=== PATIENT | male | born 1950 | race Caucasian/White ===

== ENCOUNTER 2021-02-03 09:00 | Emergency (ER) | payer MEDICARE ==
[~2021-02-03] VITALS: Ht 182.9 cm; Wt 86.2 kg
[2021-02-03] MEDS ORDERED: SODIUM CHLORIDE 0.9% 1000ML 1,000 ML IV STA (09:17)
[2021-02-03 09:21] LABS: BASOPHILS % 0.5 % (0.0-1.0); EOSINOPHILS # (AUTO) 0.2 (0.0-0.4); EOSINOPHILS % 3.5 % (0.0-6.0); HEMOGLOBIN 14.8 g/dL (14.0-18.0); LYMPHOCYTES # (AUTO) 1.8 (1.0-3.2); LYMPHOCYTES % 28.9 % (18.0-39.1); MEAN CORPUSCULAR HGB CONC 31.5 g/dL (31-35); MEAN CORPUSCULAR VOLUME 85.6 fL (81-99); MONOCYTES # (AUTO) 0.7 (0.2-0.8); MONOCYTES % 10.9 % (4.4-11.3); NEUTROPHILS # (AUTO) 3.4 (2.1-6.9); NEUTROPHILS % 55.7 % (38.7-80.0); PLATELET COUNT 279 x10e3/uL (140-360); RED BLOOD COUNT 5.49 x10e6/uL (4.3-5.7); RED CELL DISTRIBUTION WIDTH 17.1 % (11.7-14.4)
[2021-02-03 09:40] LABS: ALANINE AMINOTRANSFERASE 18 IU/L (0-55); ALBUMIN 3.2 g/dL (3.5-5.0); ALBUMIN/GLOBULIN RATIO 0.7 (0.8-2.0); ALKALINE PHOSPHATASE 131 IU/L (40-150); ANION GAP 14.6 mmol/L (8-16); BLOOD UREA NITROGEN 7 mg/dL (7-26); BUN/CREATININE RATIO 8 (6-25); CALCIUM 8.4 mg/dL (8.4-10.2); CARBON DIOXIDE 26 mmol/L (22-29); CHLORIDE 105 mmol/L (98-107); CREATINE KINASE 103 IU/L (30-200); EST GLOMERULAR FILTRATION RATE 84 ML/MIN (60-); GLUCOSE 103 mg/dL (74-118); POTASSIUM 4.6 mmol/L (3.5-5.1); SODIUM 141 mmol/L (136-145)
[2021-02-03 09:53] LABS: COLOR,URINE YELLOW (YELLOW)
[2021-02-03 09:54] LABS: CLARITY,URINE CLEAR (CLEAR); KETONES,URINE NEGATIVE (NEGATIVE); LEUKOCYTE ESTERASE ,URINE NEGATIVE (NEGATIVE); NITRITE,URINE NEGATIVE (NEGATIVE); PROTEIN,URINE DIPSTICK NEGATIVE (NEGATIVE)
[2021-02-03 09:57] LABS: AMPHETAMINES SCREEN,URINE NEGATIVE (NEGATIVE); BENZODIAZEPINES SCREEN,URINE NEGATIVE (NEGATIVE); PHENCYCLIDINE SCREEN,URINE NEGATIVE (NEGATIVE)
[2021-02-03 09:58] LABS: URINE UROBILINOGEN 0.2 mg/dL (0.2 - 1)
[2021-02-03 10:02] LABS: SALICYLATE < 5.0 mg/dL (0-30)
[2021-02-03 10:06] LABS: BACTERIA,URINE MODERATE /HPF; EPITHELIAL CELLS,URINE FEW /LPF; WBC,URINE (MAN) >50 /HPF (0-5)
[2021-02-03 10:07] LABS: MUCUS,URINE MANY (RARE); RENAL EPITHELIAL CELLS,URINE FEW; TRANSITIONAL EPI CELLS,URINE FEW
[2021-02-03] MEDS ORDERED: SIMVASTATIN40 MG PO (20:28)
[2021-02-03] MEDS ORDERED: VERAPAMIL ER120 MG PO (20:36)
[2021-02-03] MEDS ORDERED: NAPROXEN250 MG PO (20:36)
[2021-02-03] MEDS ORDERED: FAMOTIDINE20 MG PO (20:36)
[2021-02-03] MEDS ORDERED: REFRESH PLUS1 EACH (20:36)
[2021-02-03] MEDS ORDERED: DOCUSATE SODIU100 MG PO (20:36)
[2021-02-03] MEDS ORDERED: LEVOBUNOLOL HCL5 ML OP (20:36)
[2021-02-03] MEDS ORDERED: LISINOPRIL10 MG PO (20:36)
[2021-02-03] MEDS ORDERED: HYDROCHLOROTH12.5 MG PO (20:36)
[2021-02-03] MEDS ORDERED: VITAMIN D350 MCG (20:36)
[2021-02-03] MEDS ORDERED: TERAZOSIN HCL2 MG PO (20:36)
[2021-02-03] MEDS ORDERED: FINASTERIDE5 MG PO (20:36)
[2021-02-03] MEDS ORDERED: ULTRAM50 MG PO (20:36)
[2021-02-04 10:14] VITALS: BP 160/82
== END 2021-02-04 10:21 ==
LOC: ER 09:04
DX: R45.851 Suicidal ideations (principal); F32.A Depression, unspecified; R07.9 Chest pain, unspecified; I10 Essential (primary) hypertension; E78.5 Hyperlipidemia, unspecified; Z20.822 Contact with and (suspected) exposure to COVID-19
CPT/HCPCS: 36415; 71045; 80053; 80307; 80320; 80329 ×2; 81001; 82550; 82553; 84484; 85025; 93005; 99284; J7030; U0002